=== PATIENT | male | born 1950 | race Caucasian/White ===

== ENCOUNTER 2017-02-20 09:20 | Emergency (ER) | payer MEDICARE, OTHER ==
[~2017-02-20] VITALS: Ht 185.4 cm; Wt 124.3 kg
[~2017-02-20 09:20] MED LIST: ALBU8I INH; AZIT250T43 PO; BENZ100C4 PO; DULO60 PO; GLUCTAB PO; GUAI100S6 PO; LEVO112T2 PO; MEDR4PAK3 PO; NORT25CA PO; PHEN37.5 PO; SIMV40 PO; TAB-TAB PO; TOPI50TA4 PO
[2017-02-20 09:27] VITALS: BP 128/76; PULSE 88; RESP 18; O2SAT 98
[2017-02-20] MEDS ORDERED: ZOLO100T PO (09:40)
[2017-02-20] MEDS ORDERED: FISHCAP4 PO (09:40)
[2017-02-20] MEDS ORDERED: LEVO.15 PO (09:40)
--- NOTE | 2017-02-20 09:55 | PD ---
HPI Chief Complaint: Cold / Flu Symptoms Time Seen by Provider: 09:36 Travel History International Travel<30 days: Yes Contact w/Intl Traveler<30days: Yes Name of Country Traveled to: [facility], [facility], [facility], [facility] Traveled to known affect area: No History of Present Illness HPI 66-year-old male presents to the emergency room for evaluation of congestion and sore throat for the past 2-3 days. Occasional cough. No fever, chills, nausea, vomiting. His is sick with similar symptoms. They contracted illness after getting off of the cruise ship. Aytm-[id number] medications have not significantly been improving symptoms. His congestion is his biggest complaint. Only history of hypothyroidism and depression. PFSH Past Medical History Anxiety: Yes Depression: Yes Heart Rhythm Problems: Yes (HX OF SINUS TACHYCARDIA) Cancer: No Cardiovascular Problems: Yes (Sinus tach) High Cholesterol: Yes Coronary Artery Disease: Yes Diabetes: No Diminished Hearing: No (HX OF TINNITUS) Endocrine: Yes Gastrointestinal Disorders: Yes Genitourinary: No Headaches: Yes Hypertension: Yes Immune Disorder: No Implanted Vascular Access Dvce: No Insomnia: Yes Musculoskeletal: Yes (arthralgia chronic pain carpal tunnelsyndrome) Neurologic: Yes (peripheral nerve disease) Respiratory: No Thyroid Disease: Yes (hypothyroid) Tetanus Vaccination: < 5 Years Past Surgical History Abdominal Surgery: Yes (cholecystectomy) Cholecystectomy: Yes Social History Alcohol Use: Yes (DRINKS BEER OCCASIONALLY , ALST DRIN 2 WEEKS AGO) Tobacco Use: No Substance Use: No Allergies-Medications (Allergen,Severity, Reaction): Coded Allergies: penicillin G (Unverified Allergy, Severe, Anaphylaxis, 02/20/17) Reported Meds & Prescriptions Reported Meds & Active Scripts Active Reported Fish Oil + D3 (Fish Oil-Cholecalciferol) 1,200-1,000 Mg-Unit Cap 1 Cap PO DAILY Synthroid (Levothyroxine Sodium) 150 Mcg Tab 150 Mcg PO DAILY Zoloft (Sertraline HCl) 100 Mg Tab 100 Mg PO BID Review of Systems Except as stated in HPI: all other systems reviewed are Neg Physical Exam Narrative GENERAL: Well-nourished, well-developed male in no acute distress. Afebrile. Ambulatory. SKIN: Focused skin assessment warm/dry. HEAD: Normocephalic. EYES: No scleral icterus. No injection or drainage. NECK: Supple, trachea midline. No JVD or lymphadenopathy. ENT: Mucosa pink and moist. No erythema or exudates. No uvular edema. No uvular , palatal, or tonsillar deviation. Airway patent. CARDIOVASCULAR: Regular rate and rhythm without murmurs, gallops, or rubs. RESPIRATORY: Breath sounds equal bilaterally. No accessory muscle use. No crackles, rales, wheezes, or rhonchi. Data Data Last Documented VS Vital Signs Date Time Temp Pulse Resp B/P (MAP) Pulse Ox O2 Delivery O2 Flow Rate FiO2 02/20/17 09:27 88 18 128/76 (93) 98 Orders Orders Ed Discharge Order (02/20/17 09:52) MDM Medical Decision Making Medical Screen Exam Complete: Yes Emergency Medical Condition: Yes Medical Record Reviewed: Yes Differential Diagnosis URI, pneumonia, bronchitis Narrative Course 66-year-old male presents to the emergency room for evaluation of congestion, sore throat for the past 2-3 days. is sick with similar symptoms. They just got off of a cruise ship. Patient denies fever, chills, nausea, vomiting. He is afebrile and well-appearing in the emergency room. Vital signs stable. Lung sounds clear and equal bilaterally. No evidence of pneumonia, strep throat. History and physical exam are consistent with viral URI. Patient discharged with instructions to follow up with PCP in one week if symptoms persist for antibiotics. He understands and agrees to plan. Diagnosis Primary Impression: Upper respiratory infection Qualified Codes: J00 - Acute nasopharyngitis [common cold] Referrals: Primary Care Physician Additional Instructions: Rest and drink plenty of fluids. [id number] cough and cold medications as directed on box. Follow-up with a primary care physician in one week if symptoms persist for recheck and possible antibiotics. Return to the emergency room for worsening symptoms. Disposition: 01 DISCHARGE HOME Condition: Stable Marlene Polk Feb 20, 2017 09:55
== END 2017-02-20 10:10 | disposition home or self-care (01) ==
LOC: PHEFT 09:20
DX: J00 Acute nasopharyngitis [common cold] (principal)
CPT/HCPCS: 99282